=== PATIENT | male | born 1965 | race Hispanic/Latino ===

== ENCOUNTER 2017-09-29 04:37 | Inpatient (IN) | payer MEDICARE, MEDICAID ==
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
[2017-09-29 06:08] VITALS: O2SAT 100
[2017-09-29] MEDS ORDERED: Alum-Mag Hydrox-Simethicone Susp (30 mL) PO PRN (06:23)
[2017-09-29] MEDS ORDERED: Magnesium Hydroxide Susp 30 ml UD PO PRN (06:23)
[2017-09-29] MEDS ORDERED: DiphenhydrAMINE 50 mg/ml Inj IM PRN (06:42)
[2017-09-29 08:34] LABS: GLUCOSE,FASTING 92 mg/dL (65-110); HDL CHOLESTEROL 32 mg/dL (29-60)
[2017-09-29 08:45] LABS: LDL CHOLESTEROL 74 mg/dL (0-129)
[2017-09-29] MEDS ORDERED: Divalproex 500 mg DR(BID formulation) PO SCH (10:00)
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
--- NOTE | 2017-09-29 14:19 | PCM.BM ---
<Vanessa Serrano - Last Filed: 09/29/17 14:15> Treatment Plan Problems - Problems identified on initial assessmt ineffective ind coping Date Initiated: 09/29/17 Time Initiated: 14:00 Assessment reference: NA Status: Active Priority: 1 delusion Date Initiated: 09/29/17 (believes passersby are taking pictures of him from outside) Time Initiated: 14:00 Assessment reference: NA Status: Active Priority: 2 social isolation Date Initiated: 09/29/17 Time Initiated: 14:00 Assessment reference: NA Status: Active Priority: 3 Treatment assets and liabiliti Patient Assests: cooperative, ADL independent, cognitively intact Patient Liabilities: live alone, poor support system - Milieu Protocol Maintain good personal hygiene: daily Encourage regular showers, daily Remind patient to perform daily oral care, daily Assist patient to perform ADL's Maintain personal safety: every shift Educate patient to report safety concerns to staff, every shift Monitor environment for contraband/sharps Medication safety: Monitor for expected outcome, potential side effects: every shift, Assess barriers to learning: every shift, Assess readiness for medication education: every shift Milieu Narrative: Millieu/structure/supportive therapy meds as per [place] Report: lipitor 10mg po daily will be resumed depakote 500mg po am and 1000mg hs, will be resumed, depakote level was 50 prolixin 10mg po bid, will be increased to tid for psychosis, possible cross titration with invega Invega was called in to outpatient pharmacy will start 3mg po daily, with the plan to give Invega susstenna nizoral 2% bid topically omega 3 po bid will be resumed Medical consult will be considered, pt was medically cleared by ED physician at [facility] SW consultation for discharge plan and social issues Med management (specify the name, doses, plan to titrate or wean it off) Family involvement Follow up on labs Will monitor closely Pt was educated about risk/benefits and alternatives of medications, coping strategies (safety plan, suicide prevention), relapse prevention, importance of follow up with psychiatrist and therapist, stay away from drugs/alcohol/smoking Family Contact Family involvement: No known Family/SO - Outside Agency [facility] Care involvment: Following patient during stay, Information-sharing Agency contact name: [facility] Discharge/Continuing Care - Education Needs Education Needs: Patient Medication, Patient Diagnosis/Disease Process, Patient Coping Skills, Patient Community resources, Patient Activities of Daily Living, Patient Health Practices/Safety, Patient Personal Hygiene/Grooming, Patient Aftercare Safety Plan - Discharge Discharge Criteria: Tolerates medication w/o severe side effects, Free of Suicidal thoughts, Free of paranoid thoughts, Free of agitation, Normal sleep pattern, Ability to care for self Discharge to:: Halfway - Treatment Team Participation Patient/Family/SO Statement: Millieu/structure/supportive therapy meds as per [place] Report: lipitor 10mg po daily will be resumed depakote 500mg po am and 1000mg hs, will be resumed, depakote level was 50 prolixin 10mg po bid, will be increased to tid for psychosis, possible cross titration with invega Invega was called in to outpatient pharmacy will start 3mg po daily, with the plan to give Invega susstenna nizoral 2% bid topically omega 3 po bid will be resumed Medical consult will be considered, pt was medically cleared by ED physician at [facility] SW consultation for discharge plan and social issues Med management (specify the name, doses, plan to titrate or wean it off) Family involvement Follow up on labs Will monitor closely Pt was educated about risk/benefits and alternatives of medications, coping strategies (safety plan, suicide prevention), relapse prevention, importance of follow up with psychiatrist and therapist, stay away from drugs/alcohol/smoking <Fanny Vicente Y - Last Filed: 09/29/17 16:22> Family Contact Family contact: Patient agrees to contact
[2017-09-29] MEDS: Divalproex 500 mg DR(BID formulation) PO SCH ×2 (16:46→21:21)
[2017-09-29] MEDS: Omega-3-Acid Ethyl Esters 1 GM Cap PO SCH (16:47)
[2017-09-30 08:03] LABS: BASO # 0.08 K/mm3 (0.0-2.0); BASO % 1.1 % (0.0-3.0); EOS # 0.5 (0.0-0.7); EOS % 7.3 % (1.5-5.0); GRAN # 3.02 (1.4-6.5); GRAN % 41.6 % (50.0-68.0); HEMOGLOBIN 14.9 g/dL (14.0-18.0); LYMPH # 3.1 (1.2-3.4); LYMPH % 42.1 % (22.0-35.0); MEAN CELL VOLUME 89.3 fl (80.0-105.0); MEAN CORPUSCULAR HEMOGLOBIN 30.6 pg (25.0-35.0); MEAN CORPUSCULAR HGB CONC 34.3 g/dl (31.0-37.0); MEAN PLATELET VOLUME 10.9 fl (7.0-11.0); MONO # 0.6 (0.1-0.6); MONO % 7.9 % (1.0-6.0); RBC 4.87 10^6/uL (3.5-6.1); RED CELL DISTRIBUTION WIDTH 13.4 % (11.5-14.5); WHITE BLOOD COUNT 7.3 10^3/ul (4.5-11.0)
[2017-09-30 08:22] LABS: ALB/GLOB RATIO 1.3 (1.1-1.8); ALBUMIN 3.9 g/dL (3.0-4.8); ALT/SGPT 26 U/L (7-56); AST/SGOT 31 U/L (17-59); BLOOD UREA NITROGEN 15 mg/dL (7-21); CALCIUM 9.3 mg/dL (8.4-10.5); GFR AFRICAN-AMERICAN > 60; GFR NON-AFRICAN AMERICAN > 60
[2017-09-30] MEDS: Omega-3-Acid Ethyl Esters 1 GM Cap PO SCH ×2 (08:36→16:21)
[2017-09-30] MEDS: Divalproex 500 mg DR(BID formulation) PO SCH ×3 (08:36→21:00)
[2017-09-30] MEDS ORDERED: Home Med 1 UNIT PO SCH (14:00)
--- NOTE | 2017-09-30 16:01 | PCM.PYCHPN ---
Psychiatric Progress Note - Psychiatric Progress Note Patient seen today, length of contact: 30 minutes Patient Chief Complaint: "I was feeling people were after me.." Problems Identified/Issues Discussed: Suicide/ homicide prevention, past psychiatric h/o, current psychiatric symptoms , medical problems, risk/benefits and alternatives of medications, medications compliance, coping strategies, substance abuse h/o, relapse prevention, importance of follow up with psychiatrist and therapist, discharge plan. Medical Problems: patient is relatively healthy, but has dyslipidemia and hypertension Diagnostic Results: 09/30/17 07:45 09/30/17 07:45 Lab Results 09/30/17 07:45: Sodium 147, Potassium 4.5, Chloride 110 H, Carbon Dioxide 27, Anion Gap 15, BUN 15, Creatinine 0.8, Est GFR ( Amer) > 60, Est GFR (Non- Af Amer) > 60, Random Glucose 90, Calcium 9.3, Total Bilirubin 0.4, AST 31, ALT 26, Alkaline Phosphatase 49, Total Protein 6.8, Albumin 3.9, Globulin 2.9, Albumin/Globulin Ratio 1.3 09/30/17 07:45: WBC 7.3, RBC 4.87, Hgb 14.9, Hct 43.5, MCV 89.3, MCH 30.6, MCHC 34.3, RDW 13.4, Plt Count 203, MPV 10.9, Gran % 41.6 L, Lymph % (Auto) 42.1 H, [place] % (Auto) 7.9 H, Eos % (Auto) 7.3 H, Baso % (Auto) 1.1, Gran # 3.02, Lymph # (Auto) 3.1, [place] # (Auto) 0.6, Eos # (Auto) 0.5, Baso # (Auto) 0.08 09/29/17 08:00: Valproic Acid 52 09/29/17 08:00: RPR Nonreactive 09/29/17 08:00: TSH 3rd Generation 1.24 09/29/17 08:00: Fasting Glucose 92, Triglycerides 110, Cholesterol 127 L, LDL Cholesterol Direct 74, HDL Cholesterol 32 Vital Signs Temp Pulse Resp BP Pulse Ox 09/30/17 07:15 97.9 F 70 18 81/53 L 09/29/17 16:00 63 111/62 09/29/17 06:10 97.5 F L 67 20 116/75 09/29/17 05:52 82 18 118/76 100 09/29/17 04:46 97.8 F 64 18 120/71 97 DSM 5 Symptoms Update: shortly pt is 52yo with reported h/o schizoaffective disorder, bipolar type, multiple psychiatric admissions in the past, at least two suicidal attempts in his , pt lives in long term, recent psychiatric admission to [facility] on 09/15/17 where meds were adjusted, pt was brought in by staff from the long term to [facility] for evaluation of aggressive/disorganized/paranoid behavior, pt was decompensating for the past week. pt was not able to be maintained as outpatient because pt was verbally aggressive, threatening staff and residents, pt needs further evaluation and stabilization and meds adjustment. Transfer from [facility] was uneventful. pt was seen next at the nursing station, personal hygiene improved, patient seems to be relaxed, well rested. Patient still presented to be a guarded, paranoid, disorganized thought process , patient is intrusive as per staff. This financial underwriter called in for an invega to [facility] pharmacy, medication was delivered today at 3 mg by mouth will be started today, risk, benefits, alternatives discussed with the patient. patient tolerates medications well, no side effects observed or reported, as per staff there is no behavioral disturbances, no agitation, no aggression. Impression: Schizoaffective disorder, bipolar type Medication Change: Yes (invega was started) Medical Record Reviewed: Yes Consults ordered or reviewed: patient was cleared by medical team and the emergency room Mental Status Examination - Cognitive Function Orientation: Person Memory: Impaired Attention: Poor Concentration: Poor Association: Loose Fund of Knowledge: Poor - Mood Mood: Depressed - Affect Affect: Constricted (and irritable), Flat - Formal Thought Process Formal Thought Process: Hallucinations, Delusions, Paranoia, Loosening of associations, Circumstantial - Suicidal Ideation Suicidal Ideation: No - Homicidal Ideation Homicidal Ideation: No Goal/Treatment Plan - Goal/Treatment Plan Need for Continued Stay: Remain at risks for inpatient hospitalization, Severe depression anxiety, Discharge may exacerbated symptoms, Failed transitioning, Severe functional impairment Progress Toward Problem(s) and Goals/Treatment Plan: Millieu/structure/supportive therapy meds as per [place] Report: lipitor 10mg po daily will be resumed depakote 500mg po am and 1000mg hs, will be resumed, depakote level was 50 prolixin 10mg po bid, will be increased to tid for psychosis, possible cross titration with invega Invega 3mg po daily, with the plan to give Invega susstenna nizoral 2% bid topically omega 3 po bid will be resumed Medical consult will be considered, pt was medically cleared by ED physician at [facility] consultation for discharge plan and social issues Med management (specify the name, doses, plan to titrate or wean it off) Family involvement Follow up on labs Will monitor closely Pt was educated about risk/benefits and alternatives of medications, coping strategies (safety plan, suicide prevention), relapse prevention, importance of follow up with psychiatrist and therapist, stay away from drugs/alcohol/smoking Estimated Date of D/C: 10/06/17
[2017-10-01] MEDS: Divalproex 500 mg DR(BID formulation) PO SCH ×3 (08:22→21:05)
[2017-10-01] MEDS: Omega-3-Acid Ethyl Esters 1 GM Cap PO SCH ×2 (08:25→15:10)
--- NOTE | 2017-10-01 14:34 | PCM.PYCHPN ---
Psychiatric Progress Note - Psychiatric Progress Note Patient seen today, length of contact: 30 minutes Patient Chief Complaint: "I am little better" Problems Identified/Issues Discussed: Suicide/ homicide prevention, past psychiatric h/o, current psychiatric symptoms , medical problems, risk/benefits and alternatives of medications, medications compliance, coping strategies, substance abuse h/o, relapse prevention, importance of follow up with psychiatrist and therapist, discharge plan. Medical Problems: patient is relatively healthy, but has dyslipidemia and hypertension Diagnostic Results: 09/30/17 07:45 09/30/17 07:45 Lab Results 09/30/17 07:45: Sodium 147, Potassium 4.5, Chloride 110 H, Carbon Dioxide 27, Anion Gap 15, BUN 15, Creatinine 0.8, Est GFR ( Amer) > 60, Est GFR (Non- Af Amer) > 60, Random Glucose 90, Calcium 9.3, Total Bilirubin 0.4, AST 31, ALT 26, Alkaline Phosphatase 49, Total Protein 6.8, Albumin 3.9, Globulin 2.9, Albumin/Globulin Ratio 1.3 09/30/17 07:45: WBC 7.3, RBC 4.87, Hgb 14.9, Hct 43.5, MCV 89.3, MCH 30.6, MCHC 34.3, RDW 13.4, Plt Count 203, MPV 10.9, Gran % 41.6 L, Lymph % (Auto) 42.1 H, [place] % (Auto) 7.9 H, Eos % (Auto) 7.3 H, Baso % (Auto) 1.1, Gran # 3.02, Lymph # (Auto) 3.1, [place] # (Auto) 0.6, Eos # (Auto) 0.5, Baso # (Auto) 0.08 09/29/17 08:00: Valproic Acid 52 09/29/17 08:00: RPR Nonreactive 09/29/17 08:00: TSH 3rd Generation 1.24 09/29/17 08:00: Fasting Glucose 92, Triglycerides 110, Cholesterol 127 L, LDL Cholesterol Direct 74, HDL Cholesterol 32 Vital Signs Temp Pulse Resp BP Pulse Ox 09/30/17 07:15 97.9 F 70 18 81/53 L 09/29/17 16:00 63 111/62 09/29/17 06:10 97.5 F L 67 20 116/75 09/29/17 05:52 82 18 118/76 100 09/29/17 04:46 97.8 F 64 18 120/71 97 Temp Pulse Resp BP Pulse Ox 97.6 F 69 18 104/69 100 10/01/17 07:00 10/01/17 07:00 10/01/17 07:00 10/01/17 07:00 09/29/17 05:52 DSM 5 Symptoms Update: shortly pt is 52yo with reported h/o schizoaffective disorder, bipolar type, multiple psychiatric admissions in the past, at least two suicidal attempts in his , pt lives in half-way, recent psychiatric admission to [facility] on 09/15/17 where meds were adjusted, pt was brought in by staff from the half-way to [facility] for evaluation of aggressive/disorganized/paranoid behavior, pt was decompensating for the past week. pt was not able to be maintained as outpatient because pt was verbally aggressive, threatening staff and residents, pt needs further evaluation and stabilization and meds adjustment. Transfer from [facility] was uneventful. pt was seen next at the nursing station, personal hygiene improved, patient seems to be relaxed, well rested, pt reported that he likes invega "a lot", pt was asking intelligent questions about his tx plan. at the same time patient still presented to be a guarded, disorganized thought process but with some improvement, pt was keep looking to back, seems paranoid. pt is currently is on ivega 3 mg bid ([facility] pharmacy delivered this medication), with the plan to taper off prolixin. patient tolerates medications well, no side effects observed or reported, as per staff there is no behavioral disturbances, no agitation, no aggression. Impression: Schizoaffective disorder, bipolar type Medication Change: Yes (prolixin decreased, invega increased) Medical Record Reviewed: Yes Mental Status Examination - Cognitive Function Orientation: Person Memory: Impaired Attention: Poor Concentration: Poor Association: Loose Fund of Knowledge: Poor - Mood Mood: Depressed - Affect Affect: Constricted (and irritable), Flat - Formal Thought Process Formal Thought Process: Hallucinations, Delusions, Paranoia, Loosening of associations, Circumstantial - Suicidal Ideation Suicidal Ideation: No - Homicidal Ideation Homicidal Ideation: No Goal/Treatment Plan - Goal/Treatment Plan Need for Continued Stay: Remain at risks for inpatient hospitalization, Severe depression anxiety, Discharge may exacerbated symptoms, Failed transitioning, Severe functional impairment Progress Toward Problem(s) and Goals/Treatment Plan: [facility]ieu/structure/supportive therapy meds as per [place] Report: lipitor 10mg po daily will be resumed depakote 500mg po am and 1000mg hs, will be resumed, depakote level was 50 prolixin 10mg po bid (was decreased /) with the plan to tapered off Invega 3mg po bid, with the plan to give Invega susstenna nizoral 2% bid topically omega 3 po bid will be resumed Medical consult will be considered, pt was medically cleared by ED physician at [facility] SW consultation for discharge plan and social issues Med management (specify the name, doses, plan to titrate or wean it off) Family involvement Follow up on labs Will monitor closely Pt was educated about risk/benefits and alternatives of medications, coping strategies (safety plan, suicide prevention), relapse prevention, importance of follow up with psychiatrist and therapist, stay away from drugs/alcohol/smoking Estimated Date of D/C: 10/06/17
[2017-10-01] MEDS: Home Med 1 UNIT PO SCH (21:05)
[2017-10-01] MEDS ORDERED: Home Med 1 UNIT PO SCH (22:00)
[2017-10-02 06:45] VITALS: RESP 20
[2017-10-02] MEDS: Divalproex 500 mg DR(BID formulation) PO SCH ×3 (08:30→21:10)
[2017-10-02] MEDS: Omega-3-Acid Ethyl Esters 1 GM Cap PO SCH ×2 (08:30→16:03)
--- NOTE | 2017-10-02 09:38 | PCM.PYCHPN ---
Psychiatric Progress Note - Psychiatric Progress Note Patient seen today, length of contact: 25 minutes Patient Chief Complaint: "okay" Problems Identified/Issues Discussed: I have reviewed assessment. Patient is a 52yo WM with reported h/o schizoaffective disorder, bipolar type, multiple psychiatric admissions in the past, at least two suicidal attempts in his 20s, pt lives in [facility], recent psychiatric admission to [facility] on 09/15/17 where meds were adjusted, who was BIB [facility] staff to [facility] for evaluation of aggressive/ disorganized/paranoid behavior. Apparently patient was decompensating for a week , verbally aggressive and threatening staff and residents. I reviewed recent notes and met with patient at bedside. He is alert and oriented x3. Patient denies any new issues or discomfort except for muscle stiffness. Indicates that he feels okay, affect is constricted. Patient reports that he has been sleeping really well. Denies hallucinations, paranoia and delusions were not elicited. Staff notes indicate that patient has been visible and can tolerate group settings. Compliant with medications and has been sleeping well with ambien. Patient has been calmer and less labile (was noted to be irritable and granger earlier during admission). There were no major behavioral issues overnight. Diagnostic Results: Schizoaffective disorder, bipolar type Medication Change: Yes (prolixin decreased, invega increased) Medical Record Reviewed: Yes Mental Status Examination - Cognitive Function Orientation: Person, Place Memory: Impaired Attention: WNL Concentration: Poor Association: Loose Fund of Knowledge: Poor - Mood Mood: Depressed ("okay") - Affect Affect: Constricted (and irritable), Flat - Formal Thought Process Formal Thought Process: Hallucinations (denied), Delusions, Paranoia, Loosening of associations, Circumstantial - Suicidal Ideation Suicidal Ideation: No - Homicidal Ideation Homicidal Ideation: No Goal/Treatment Plan - Goal/Treatment Plan Need for Continued Stay: Remain at risks for inpatient hospitalization, Severe depression anxiety, Discharge may exacerbated symptoms, Failed transitioning, Severe functional impairment Progress Toward Problem(s) and Goals/Treatment Plan: * c/w current tx and plan * Vitals reviewed and noted below: Selected Entries 10/02/17 06:44 Temperature 97.8 F Pulse Rate 82 Respiratory 20 Rate Blood Pressure 121/82 * No new weekend labs thus far. Estimated Date of D/C: 10/06/17
[2017-10-02] MEDS: Home Med 1 UNIT PO SCH ×2 (10:03→21:14)
[2017-10-03] MEDS: Divalproex 500 mg DR(BID formulation) PO SCH ×3 (08:41→20:58)
[2017-10-03] MEDS: Omega-3-Acid Ethyl Esters 1 GM Cap PO SCH ×2 (08:42→15:54)
--- NOTE | 2017-10-03 08:43 | PCM.PYCHPN ---
Psychiatric Progress Note - Psychiatric Progress Note Patient seen today, length of contact: 25 minutes Patient Chief Complaint: "okay" Problems Identified/Issues Discussed: I have reviewed assessment. Patient is a 52yo WM with reported h/o schizoaffective disorder, bipolar type, multiple psychiatric admissions in the past, at least two suicidal attempts in his 20s, [facility], recent psychiatric admission to [facility] on 09/15/17 where meds were adjusted, who [facility] BIB [facility] staff to [facility] for evaluation of aggressive/ disorganized/paranoid behavior. Apparently patient was decompensating for a week , verbally aggressive and threatening staff and residents. I reviewed recent notes and met with patient at bedside. He is alert and oriented x3. Patient denies any new issues or discomfort except for muscle stiffness. Indicates that he feels okay, affect is constricted. Patient reports that he has been sleeping well. Denies hallucinations, paranoia and delusions were not elicited this morning. Staff notes indicate that patient has been visible and attending groups with good participation. Compliant with medications and has been sleeping well with ambien. Patient has been calmer and a little less labile this weekend (he was noted to be irritable and granger earlier during admission). There were no major behavioral issues over the weekend though patient has been noted to still be paranoid and delusional by some staff members. Diagnostic Results: Schizoaffective disorder, bipolar type Medication Change: Yes (prolixin decreased, invega increased) Medical Record Reviewed: Yes Mental Status Examination - Cognitive Function Orientation: Person, Place Memory: Impaired Attention: WNL Concentration: Poor Association: Loose Fund of Knowledge: Poor - Mood Mood: Depressed ("okay") - Affect Affect: Constricted (and irritable), Flat - Formal Thought Process Formal Thought Process: Hallucinations (denied), Delusions, Paranoia, Loosening of associations, Circumstantial - Suicidal Ideation Suicidal Ideation: No - Homicidal Ideation Homicidal Ideation: No Goal/Treatment Plan - Goal/Treatment Plan Need for Continued Stay: Remain at risks for inpatient hospitalization, Severe depression anxiety, Discharge may exacerbated symptoms, Failed transitioning, Severe functional impairment Progress Toward Problem(s) and Goals/Treatment Plan: * c/w current tx and plan * Vitals reviewed and noted below: Selected Entries 10/03/17 07:32 Temperature 97.6 F Pulse Rate 63 Respiratory 20 Rate Blood Pressure 99/60 L * No new weekend labs Estimated Date of D/C: 10/06/17
[2017-10-03] MEDS: Home Med 1 UNIT PO SCH ×2 (09:11→21:00)
[2017-10-04] MEDS: Omega-3-Acid Ethyl Esters 1 GM Cap PO SCH ×2 (08:52→16:26)
[2017-10-04] MEDS: Divalproex 500 mg DR(BID formulation) PO SCH ×3 (08:53→21:06)
[2017-10-04] MEDS: Home Med 1 UNIT PO SCH (10:42)
--- NOTE | 2017-10-04 15:59 | PCM.PYCHPN ---
Psychiatric Progress Note - Psychiatric Progress Note Patient seen today, length of contact: 25 minutes Patient Chief Complaint: "I am little better" Problems Identified/Issues Discussed: Suicide/ homicide prevention, past psychiatric h/o, current psychiatric symptoms , medical problems, risk/benefits and alternatives of medications, medications compliance, coping strategies, substance abuse h/o, relapse prevention, importance of follow up with psychiatrist and therapist, discharge plan. Medical Problems: patient is relatively healthy, but has dyslipidemia and hypertension Diagnostic Results: 09/30/17 07:45 09/30/17 07:45 Lab Results 09/30/17 07:45: Sodium 147, Potassium 4.5, Chloride 110 H, Carbon Dioxide 27, Anion Gap 15, BUN 15, Creatinine 0.8, Est GFR ( Amer) > 60, Est GFR (Non- Af Amer) > 60, Random Glucose 90, Calcium 9.3, Total Bilirubin 0.4, AST 31, ALT 26, Alkaline Phosphatase 49, Total Protein 6.8, Albumin 3.9, Globulin 2.9, Albumin/Globulin Ratio 1.3 09/30/17 07:45: WBC 7.3, RBC 4.87, Hgb 14.9, Hct 43.5, MCV 89.3, MCH 30.6, MCHC 34.3, RDW 13.4, Plt Count 203, MPV 10.9, Gran % 41.6 L, Lymph % (Auto) 42.1 H, [place] % (Auto) 7.9 H, Eos % (Auto) 7.3 H, Baso % (Auto) 1.1, Gran # 3.02, Lymph # (Auto) 3.1, [place] # (Auto) 0.6, Eos # (Auto) 0.5, Baso # (Auto) 0.08 09/29/17 08:00: Valproic Acid 52 09/29/17 08:00: RPR Nonreactive 09/29/17 08:00: TSH 3rd Generation 1.24 09/29/17 08:00: Fasting Glucose 92, Triglycerides 110, Cholesterol 127 L, LDL Cholesterol Direct 74, HDL Cholesterol 32 Vital Signs Temp Pulse Resp BP Pulse Ox 09/30/17 07:15 97.9 F 70 18 81/53 L 09/29/17 16:00 63 111/62 09/29/17 06:10 97.5 F L 67 20 116/75 09/29/17 05:52 82 18 118/76 100 09/29/17 04:46 97.8 F 64 18 120/71 97 Temp Pulse Resp BP Pulse Ox 97.6 F 69 18 104/69 100 10/01/17 07:00 10/01/17 07:00 10/01/17 07:00 10/01/17 07:00 09/29/17 05:52 DSM 5 Symptoms Update: shortly pt is 52yo with reported h/o schizoaffective disorder, bipolar type, multiple psychiatric admissions in the past, at least two suicidal attempts in his , pt lives in [facility], recent psychiatric admission to [facility] on 09/15/17 where meds were adjusted, pt was brought in by staff from the [facility] to [facility] for evaluation of aggressive/disorganized/paranoid behavior, pt was decompensating for the past week. pt was not able to be maintained as outpatient because pt was verbally aggressive, threatening staff and residents, pt needs further evaluation and stabilization and meds adjustment. Transfer from [facility] was uneventful. pt was seen at the treatment team meeting, personal hygiene improved, patient seems to be relaxed, well rested, pt reported that he likes invega "a lot", pt was asking intelligent questions about his tx plan. at the same time patient made a statement to staff that he feels people stop talking when he comes to the room, still guarded, but with some improvements. pt is currently is on ivega 6 mg bid ([facility] pharmacy delivered this medication), pt is on taper dose of prolixin. patient tolerates medications well, as per pt c/o mm stiffness, cogentin was ordered. Impression: Schizoaffective disorder, bipolar type Medication Change: Yes (prolixin decreased, invega increased) Medical Record Reviewed: Yes Mental Status Examination - Cognitive Function Orientation: Person, Place Memory: Impaired Attention: WNL Concentration: Poor Association: Loose Fund of Knowledge: Poor - Mood Mood: Depressed ("okay") - Affect Affect: Constricted (and irritable), Flat - Formal Thought Process Formal Thought Process: Hallucinations (denied), Delusions, Paranoia, Loosening of associations, Circumstantial - Suicidal Ideation Suicidal Ideation: No - Homicidal Ideation Homicidal Ideation: No Goal/Treatment Plan - Goal/Treatment Plan Need for Continued Stay: Remain at risks for inpatient hospitalization, Severe depression anxiety, Discharge may exacerbated symptoms, Failed transitioning, Severe functional impairment Progress Toward Problem(s) and Goals/Treatment Plan: Millieu/structure/supportive therapy meds as per [place] Report: lipitor 10mg po daily will be resumed depakote 500mg po am and 1000mg hs, will be resumed, depakote level was 50 prolixin 5mg po hs with the plan to tapered off Invega 6mg po bid, with the plan to give Invega susstenna nizoral 2% bid topically omega 3 po bid will be resumed Medical consult will be considered, pt was medically cleared by ED physician at [facility] SW consultation for discharge plan and social issues Med management (specify the name, doses, plan to titrate or wean it off) Family involvement Follow up on labs Will monitor closely Pt was educated about risk/benefits and alternatives of medications, coping strategies (safety plan, suicide prevention), relapse prevention, importance of follow up with psychiatrist and therapist, stay away from drugs/alcohol/smoking Estimated Date of D/C: 10/06/17
[2017-10-04] MEDS ORDERED: Home Med 1 UNIT PO SCH (22:00)
[2017-10-05] MEDS: Divalproex 500 mg DR(BID formulation) PO SCH ×3 (09:03→20:59)
[2017-10-05] MEDS: Omega-3-Acid Ethyl Esters 1 GM Cap PO SCH ×2 (09:03→16:05)
[2017-10-05] MEDS: PALIPERIDONE 6 MG PO SCH ×2 (11:21→21:00)
--- NOTE | 2017-10-05 16:42 | PCM.PYCHPN ---
Psychiatric Progress Note - Psychiatric Progress Note Patient seen today, length of contact: 25 minutes Patient Chief Complaint: "I am little better" Problems Identified/Issues Discussed: Suicide/ homicide prevention, past psychiatric h/o, current psychiatric symptoms , medical problems, risk/benefits and alternatives of medications, medications compliance, coping strategies, substance abuse h/o, relapse prevention, importance of follow up with psychiatrist and therapist, discharge plan. Medical Problems: patient is relatively healthy, but has dyslipidemia and hypertension Diagnostic Results: 09/30/17 07:45 09/30/17 07:45 Lab Results 09/30/17 07:45: Sodium 147, Potassium 4.5, Chloride 110 H, Carbon Dioxide 27, Anion Gap 15, BUN 15, Creatinine 0.8, Est GFR ( Amer) > 60, Est GFR (Non- Af Amer) > 60, Random Glucose 90, Calcium 9.3, Total Bilirubin 0.4, AST 31, ALT 26, Alkaline Phosphatase 49, Total Protein 6.8, Albumin 3.9, Globulin 2.9, Albumin/Globulin Ratio 1.3 09/30/17 07:45: WBC 7.3, RBC 4.87, Hgb 14.9, Hct 43.5, MCV 89.3, MCH 30.6, MCHC 34.3, RDW 13.4, Plt Count 203, MPV 10.9, Gran % 41.6 L, Lymph % (Auto) 42.1 H, [place] % (Auto) 7.9 H, Eos % (Auto) 7.3 H, Baso % (Auto) 1.1, Gran # 3.02, Lymph # (Auto) 3.1, [place] # (Auto) 0.6, Eos # (Auto) 0.5, Baso # (Auto) 0.08 09/29/17 08:00: Valproic Acid 52 09/29/17 08:00: RPR Nonreactive 09/29/17 08:00: TSH 3rd Generation 1.24 09/29/17 08:00: Fasting Glucose 92, Triglycerides 110, Cholesterol 127 L, LDL Cholesterol Direct 74, HDL Cholesterol 32 Vital Signs Temp Pulse Resp BP Pulse Ox 09/30/17 07:15 97.9 F 70 18 81/53 L 09/29/17 16:00 63 111/62 09/29/17 06:10 97.5 F L 67 20 116/75 09/29/17 05:52 82 18 118/76 100 09/29/17 04:46 97.8 F 64 18 120/71 97 Temp Pulse Resp BP Pulse Ox 97.6 F 69 18 104/69 100 10/01/17 07:00 10/01/17 07:00 10/01/17 07:00 10/01/17 07:00 09/29/17 05:52 DSM 5 Symptoms Update: shortly pt is 52yo with reported h/o schizoaffective disorder, bipolar type, multiple psychiatric admissions in the past, at least two suicidal attempts in his , pt lives in [facility], recent psychiatric admission to [facility] on 09/15/17 where meds were adjusted, pt was brought [facility] by staff from the [facility] to [facility] for evaluation of aggressive/disorganized/paranoid behavior, pt was decompensating for the past week. pt was not able to be maintained as outpatient because pt was verbally aggressive, threatening staff and residents, pt needs further evaluation and stabilization and meds adjustment. Transfer from [facility] was uneventful. pt was seen in his room, pt said he was feeling that his roommate was starring at him "all night long, may be he was just up all night long, I don't know, or may be I was feeling paranoid", pt said he tolerates invega well, denied any side effects. pt said he is not depressed, denied any thoughts of harming self or others. pt was asking intelligent questions about his tx plan. pt was offered Invega sustenna IM , but pt said "my body is not tolerating injections well" pt is currently is on ivega 6 mg bid ([facility] pharmacy delivered this medication), d /c prolixin today. patient tolerates medications well, as per pt c/o mm stiffness, cogentin was ordered. Impression: Schizoaffective disorder, bipolar type Medication Change: Yes (prolixin decreased, invega increased) Medical Record Reviewed: Yes Consults ordered or reviewed: patient was cleared by medical team and the emergency room Mental Status Examination - Cognitive Function Orientation: Person, Place Memory: Impaired Attention: WNL Concentration: Poor (some improvement) Association: Loose (some improvement) Fund of Knowledge: Poor - Mood Mood: Depressed ("okay") - Affect Affect: Constricted (and irritable), Flat - Formal Thought Process Formal Thought Process: Hallucinations (denied), Delusions (some iprovement), Paranoia (improvement), Loosening of associations (with some improvement) - Suicidal Ideation Suicidal Ideation: No - Homicidal Ideation Homicidal Ideation: No Goal/Treatment Plan - Goal/Treatment Plan Need for Continued Stay: Remain at risks for inpatient hospitalization, Severe depression anxiety, Discharge may exacerbated symptoms, Failed transitioning, Severe functional impairment Progress Toward Problem(s) and Goals/Treatment Plan: Millieu/structure/supportive therapy meds as per [facility] Report: lipitor 10mg po daily will be resumed depakote 500mg po am and 1000mg hs, will be resumed, depakote level was 50 prolixin d/c today Invega 6mg po bid, with the plan to give Invega susstenna nizoral 2% bid topically omega 3 po bid will be resumed Medical consult will be considered, pt was medically cleared by ED physician at [facility] consultation for discharge plan and social issues Med management (specify the name, doses, plan to titrate or wean it off) Family involvement Follow up on labs Will monitor closely Pt was educated about risk/benefits and alternatives of medications, coping strategies (safety plan, suicide prevention), relapse prevention, importance of follow up with psychiatrist and therapist, stay away from drugs/alcohol/smoking Estimated Date of D/C: 10/07/17
[2017-10-05] MEDS ORDERED: Home Med 1 UNIT PO SCH (22:00)
[2017-10-06] MEDS: Divalproex 500 mg DR(BID formulation) PO SCH (08:47)
[2017-10-06] MEDS: Omega-3-Acid Ethyl Esters 1 GM Cap PO SCH ×2 (08:47→16:06)
[2017-10-06] MEDS: PALIPERIDONE 6 MG PO SCH ×2 (09:17→21:11)
--- NOTE | 2017-10-06 12:36 | PCM.PYCHPN ---
Psychiatric Progress Note - Psychiatric Progress Note Patient seen today, length of contact: 30min Patient Chief Complaint: "I am little confused" Problems Identified/Issues Discussed: Suicide/ homicide prevention, past psychiatric h/o, current psychiatric symptoms , medical problems, risk/benefits and alternatives of medications, medications compliance, coping strategies, substance abuse h/o, relapse prevention, importance of follow up with psychiatrist and therapist, discharge plan. Medical Problems: patient is relatively healthy, but has dyslipidemia and hypertension Diagnostic Results: 09/30/17 07:45 09/30/17 07:45 Lab Results 09/30/17 07:45: Sodium 147, Potassium 4.5, Chloride 110 H, Carbon Dioxide 27, Anion Gap 15, BUN 15, Creatinine 0.8, Est GFR ( Amer) > 60, Est GFR (Non- Af Amer) > 60, Random Glucose 90, Calcium 9.3, Total Bilirubin 0.4, AST 31, ALT 26, Alkaline Phosphatase 49, Total Protein 6.8, Albumin 3.9, Globulin 2.9, Albumin/Globulin Ratio 1.3 09/30/17 07:45: WBC 7.3, RBC 4.87, Hgb 14.9, Hct 43.5, MCV 89.3, MCH 30.6, MCHC 34.3, RDW 13.4, Plt Count 203, MPV 10.9, Gran % 41.6 L, Lymph % (Auto) 42.1 H, [place] % (Auto) 7.9 H, Eos % (Auto) 7.3 H, Baso % (Auto) 1.1, Gran # 3.02, Lymph # (Auto) 3.1, [place] # (Auto) 0.6, Eos # (Auto) 0.5, Baso # (Auto) 0.08 09/29/17 08:00: Valproic Acid 52 09/29/17 08:00: RPR Nonreactive 09/29/17 08:00: TSH 3rd Generation 1.24 09/29/17 08:00: Fasting Glucose 92, Triglycerides 110, Cholesterol 127 L, LDL Cholesterol Direct 74, HDL Cholesterol 32 Vital Signs Temp Pulse Resp BP Pulse Ox 09/30/17 07:15 97.9 F 70 18 81/53 L 09/29/17 16:00 63 111/62 09/29/17 06:10 97.5 F L 67 20 116/75 09/29/17 05:52 82 18 118/76 100 09/29/17 04:46 97.8 F 64 18 120/71 97 Temp Pulse Resp BP Pulse Ox 97.6 F 69 18 104/69 100 10/01/17 07:00 10/01/17 07:00 10/01/17 07:00 10/01/17 07:00 09/29/17 05:52 Temp Pulse Resp BP Pulse Ox 97.9 F 72 20 127/78 100 10/06/17 07:00 10/06/17 07:00 10/06/17 07:00 10/06/17 07:00 09/29/17 05:52 DSM 5 Symptoms Update: shortly pt is 52yo with reported h/o schizoaffective disorder, bipolar type, multiple psychiatric admissions in the past, at least two suicidal attempts in his , pt lives in [facility], recent psychiatric admission to [facility] on 09/15/17 where meds were adjusted, pt was brought in by staff from the [facility] to [facility] for evaluation of aggressive/disorganized/paranoid behavior, pt was decompensating for the past week. pt was not able to be maintained as outpatient because pt was verbally aggressive, threatening staff and residents, pt needs further evaluation and stabilization and meds adjustment. Transfer from [facility] was uneventful. pt was seen at the treatment team meeting, pt presented to be more confused, had difficulties to express himself, speech is more disorganized, pt trying his best to present well. as per staff pt had paranoia, was feeling that another pt was chasing him, which was not true, pt responded well on education and reality education, pt was receptive. pt agreed to be resumed on prolixin 5mg po bid, stat dose was given. as per pt "I was on two medications before, I am fine with that...". pt asked about depakote to be given twice a day. pt olerates invega well, denied any side effects. pt said he is not depressed, denied any thoughts of harming self or others. pt was asking intelligent questions about his tx plan. pt was offered Invega sustenna IM , but pt said "my body is not tolerating injections well" patient tolerates medications well, as per pt c/o mm stiffness, cogentin was ordered. Impression: Schizoaffective disorder, bipolar type Medication Change: Yes (prolixin resumed, invega increased) Medical Record Reviewed: Yes Mental Status Examination - Cognitive Function Orientation: Person, Place Memory: Impaired Attention: WNL Concentration: Poor (some improvement) Association: Loose (some improvement) Fund of Knowledge: Poor - Mood Mood: Depressed ("okay") - Affect Affect: Constricted (and irritable), Flat - Formal Thought Process Formal Thought Process: Hallucinations (denied), Delusions, Paranoia (pt felt that other pt was chasing him, pt also had feeling that his roommate was staring at him), Loosening of associations (with some improvement) - Suicidal Ideation Suicidal Ideation: No - Homicidal Ideation Homicidal Ideation: No Goal/Treatment Plan - Goal/Treatment Plan Need for Continued Stay: Remain at risks for inpatient hospitalization, Severe depression anxiety, Discharge may exacerbated symptoms, Failed transitioning, Severe functional impairment Progress Toward Problem(s) and Goals/Treatment Plan: Millieu/structure/supportive therapy lipitor 10mg po daily will be resumed depakote 500mg po am and 1000mg hs, will be resumed, depakote level was 50 prolixin 5mg po amhs resumed for psychosis pt should be on two antipsychotics as of now Invega 6mg po bid, with the plan to give Invega susstenna nizoral 2% bid topically omega 3 po bid will be resumed Medical consult will be considered, pt was medically cleared by ED physician at [facility] consultation for discharge plan and social issues Med management (specify the name, doses, plan to titrate or wean it off) Family involvement Follow up on labs Will monitor closely Pt was educated about risk/benefits and alternatives of medications, coping strategies (safety plan, suicide prevention), relapse prevention, importance of follow up with psychiatrist and therapist, stay away from drugs/alcohol/smoking Estimated Date of D/C: 10/08/17
--- NOTE | 2017-10-06 14:14 | PCM.BM ---
Treatment Plan Problems - Problems identified on initial assessmt ineffective ind coping Date Initiated: 09/29/17 (10/06/17 POSITIVE COPING SKILLS HAS IMPROVED) Time Initiated: 14:00 Assessment reference: NA Status: Active Priority: 1 delusion Date Initiated: 09/29/17 (believes passersby are taking pictures of him from outside) Time Initiated: 14:00 (10/06/17 PARANOID DELUSION IS LESS) Assessment reference: NA Status: Active Priority: 2 social isolation Date Initiated: 09/29/17 Time Initiated: 14:00 Date resolved: 10/06/17 (ATTENDING MORE GROUPS) Assessment reference: NA Status: Active Priority: 3 Treatment assets and liabiliti Patient Assests: cooperative, ADL independent, cognitively intact Patient Liabilities: live alone, poor support system - Milieu Protocol Maintain good personal hygiene: daily Encourage regular showers, daily Remind patient to perform daily oral care, daily Assist patient to perform ADL's Maintain personal safety: every shift Educate patient to report safety concerns to staff, every shift Monitor environment for contraband/sharps Medication safety: Monitor for expected outcome, potential side effects: every shift, Assess barriers to learning: every shift, Assess readiness for medication education: every shift Milieu Narrative: Millieu/structure/supportive therapy lipitor 10mg po daily will be resumed depakote 500mg po am and 1000mg hs, will be resumed, depakote level was 50 prolixin 5mg po amhs resumed for psychosis pt should be on two antipsychotics as of now Invega 6mg po bid, with the plan to give Invega susstenna nizoral 2% bid topically omega 3 po bid will be resumed Medical consult will be considered, pt was medically cleared by ED physician at [facility] consultation for discharge plan and social issues Med management (specify the name, doses, plan to titrate or wean it off) Family involvement Follow up on labs Will monitor closely Pt was educated about risk/benefits and alternatives of medications, coping strategies (safety plan, suicide prevention), relapse prevention, importance of follow up with psychiatrist and therapist, stay away from drugs/alcohol/smoking Family Contact Family contact: Patient agrees to contact - Outside Agency [facility] Care involvment: Following patient during stay, Information-sharing Agency contact name: [facility] Discharge/Continuing Care - Education Needs Education Needs: Patient Medication, Patient Diagnosis/Disease Process, Patient Coping Skills, Patient Community resources, Patient Activities of Daily Living, Patient Health Practices/Safety, Patient Personal Hygiene/Grooming, Patient Aftercare Safety Plan - Discharge Discharge Criteria: Tolerates medication w/o severe side effects, Free of Suicidal thoughts, Free of paranoid thoughts, Free of agitation, Normal sleep pattern, Ability to care for self Discharge to:: [facility] - Treatment Team Participation Patient/Family/SO Statement: Millieu/structure/supportive therapy lipitor 10mg po daily will be resumed depakote 500mg po am and 1000mg hs, will be resumed, depakote level was 50 prolixin 5mg po amhs resumed for psychosis pt should be on two antipsychotics as of now Invega 6mg po bid, with the plan to give Invega susstenna nizoral 2% bid topically omega 3 po bid will be resumed Medical consult will be considered, pt was medically cleared by ED physician at [facility] consultation for discharge plan and social issues Med management (specify the name, doses, plan to titrate or wean it off) Family involvement Follow up on labs Will monitor closely Pt was educated about risk/benefits and alternatives of medications, coping strategies (safety plan, suicide prevention), relapse prevention, importance of follow up with psychiatrist and therapist, stay away from drugs/alcohol/smoking Treatment Plan Review - Problem ineffective ind coping Time Initiated: 14:00 delusion Time Initiated: 14:00 social isolation Time Initiated: 14:00
[2017-10-06] MEDS ORDERED: Divalproex 500 mg ER (ONCE DAILY formulation) PO SCH (22:00)
[2017-10-07 07:03] VITALS: BP 102/70; PULSE 82; TEMP 97.2
[2017-10-07] MEDS ORDERED: Divalproex 500 mg ER (ONCE DAILY formulation) PO SCH (08:00)
[2017-10-07 08:02] LABS: BASO # 0.06 K/mm3 (0.0-2.0); BASO % 0.9 % (0.0-3.0); EOS # 0.4 (0.0-0.7); EOS % 5.3 % (1.5-5.0); GRAN # 1.93 (1.4-6.5); GRAN % 29.5 % (50.0-68.0); HEMOGLOBIN 13.5 g/dL (14.0-18.0); LYMPH # 3.4 (1.2-3.4); LYMPH % 51.3 % (22.0-35.0); MEAN CELL VOLUME 88.9 fl (80.0-105.0); MEAN CORPUSCULAR HEMOGLOBIN 30.5 pg (25.0-35.0); MEAN CORPUSCULAR HGB CONC 34.3 g/dl (31.0-37.0); MEAN PLATELET VOLUME 11.4 fl (7.0-11.0); MONO # 0.9 (0.1-0.6); RBC 4.43 10^6/uL (3.5-6.1); RED CELL DISTRIBUTION WIDTH 13.1 % (11.5-14.5); WHITE BLOOD COUNT 6.6 10^3/ul (4.5-11.0)
[2017-10-07 08:25] LABS: ALB/GLOB RATIO 1.4 (1.1-1.8); ALBUMIN 3.5 g/dL (3.0-4.8); ALT/SGPT 30 U/L (7-56); AST/SGOT 19 U/L (17-59); BLOOD UREA NITROGEN 14 mg/dL (7-21); GFR AFRICAN-AMERICAN > 60; GFR NON-AFRICAN AMERICAN > 60
[2017-10-07] MEDS: Omega-3-Acid Ethyl Esters 1 GM Cap PO SCH (08:27)
[2017-10-07] MEDS: PALIPERIDONE 6 MG PO SCH (09:10)
--- NOTE | 2017-10-07 15:24 | PCM.PYCHDC ---
Mental Status Examination - Mental Status Examination Orientation: Person, Place, Situation, Time Memory: Intact Mood: Neutral Affect: Broad (and mood congruent) Speech: Appropriate (but mildly disorganized seems to be at baseline) Attention: Poor (much improved) Concentration: Poor (much improved) Association: WNL Fund of Knowledge: Poor (baseline) Formal Thought Process: Other (hought process seems to be mildly disorganized, but seems to be at his baseline) Description of patient's judgement and insight: Pt has improved insight into mental and medical illness, pt was compliant with medications and unit rules and regulations, pt was going to groups, was calm, cooperative, socially appropriate, no behavioral incidents, no agitation, no aggression. Psychotic Thoughts and Behaviors: Pt denied v/a/t hallucinations, denied paranoid ideations, pt does not appear to be psychotic, and thought process is goal directed. Suicidal Ideation: No Current Homicidal Ideation?: No Plan: pt adamantly denied thoughts of harming self or others denied intent or plan. Discharge Summary - Discharge Note Reason for Hospitalization: pt was admitted for evaluation of worsening of psychosis, pt was feeling paranoid, was acting bizarre Psychiatric History (includes Medical, Family, Personal Hx): see HPI Laboratory Data: Abnormal Lab Results 10/07/17 10/07/17 07:15 07:15 WBC 6.6 RBC 4.43 Hgb 13.5 L Hct 39.4 L MCV 88.9 MCH 30.5 MCHC 34.3 RDW 13.1 Plt Count 178 MPV 11.4 H Gran % 29.5 L Lymph % (Auto) 51.3 H [place] % (Auto) 13.0 H Eos % (Auto) 5.3 H Baso % (Auto) 0.9 Gran # 1.93 Lymph # (Auto) 3.4 [place] # (Auto) 0.9 H Eos # (Auto) 0.4 Baso # (Auto) 0.06 Sodium 144 Potassium 4.4 Chloride 107 Carbon Dioxide 28 Anion Gap 14 BUN 14 Creatinine 0.7 L Est GFR ( Amer) > 60 Est GFR (Non-Af Amer) > 60 Random Glucose 87 Calcium 9.0 Total Bilirubin 0.4 AST 19 ALT 30 Alkaline Phosphatase 49 Total Protein 6.1 Albumin 3.5 Globulin 2.5 Albumin/Globulin Ratio 1.4 10/07/17 07:15 10/07/17 07:15 Lab Results 10/07/17 07:15: Sodium 144, Potassium 4.4, Chloride 107, Carbon Dioxide 28, Anion Gap 14, BUN 14, Creatinine 0.7 L, Est GFR ( Amer) > 60, Est GFR ( Non-Af Amer) > 60, Random Glucose 87, Calcium 9.0, Total Bilirubin 0.4, AST 19, ALT 30, Alkaline Phosphatase 49, Total Protein 6.1, Albumin 3.5, Globulin 2.5, Albumin/Globulin Ratio 1.4 10/07/17 07:15: WBC 6.6, RBC 4.43, Hgb 13.5 L, Hct 39.4 L, MCV 88.9, MCH 30.5, MCHC 34.3, RDW 13.1, Plt Count 178, MPV 11.4 H, Gran % 29.5 L, Lymph % (Auto) 51.3 H, [place] % (Auto) 13.0 H, Eos % (Auto) 5.3 H, Baso % (Auto) 0.9, Gran # 1.93 , Lymph # (Auto) 3.4, [place] # (Auto) 0.9 H, Eos # (Auto) 0.4, Baso # (Auto) 0.06 10/04/17 07:00: Valproic Acid 77 09/30/17 07:45: Sodium 147, Potassium 4.5, Chloride 110 H, Carbon Dioxide 27, Anion Gap 15, BUN 15, Creatinine 0.8, Est GFR ( Amer) > 60, Est GFR (Non- Af Amer) > 60, Random Glucose 90, Calcium 9.3, Total Bilirubin 0.4, AST 31, ALT 26, Alkaline Phosphatase 49, Total Protein 6.8, Albumin 3.9, Globulin 2.9, Albumin/Globulin Ratio 1.3 09/30/17 07:45: WBC 7.3, RBC 4.87, Hgb 14.9, Hct 43.5, MCV 89.3, MCH 30.6, MCHC 34.3, RDW 13.4, Plt Count 203, MPV 10.9, Gran % 41.6 L, Lymph % (Auto) 42.1 H, [place] % (Auto) 7.9 H, Eos % (Auto) 7.3 H, Baso % (Auto) 1.1, Gran # 3.02, Lymph # (Auto) 3.1, [place] # (Auto) 0.6, Eos # (Auto) 0.5, Baso # (Auto) 0.08 09/29/17 08:00: Valproic Acid 52 09/29/17 08:00: RPR Nonreactive 09/29/17 08:00: TSH 3rd Generation 1.24 09/29/17 08:00: Fasting Glucose 92, Triglycerides 110, Cholesterol 127 L, LDL Cholesterol Direct 74, HDL Cholesterol 32 Vital Signs Temp Pulse Resp BP Pulse Ox 10/07/17 07:00 97.2 F L 82 20 102/70 10/06/17 16:10 101 H 133/73 10/06/17 07:00 97.9 F 72 20 127/78 10/05/17 16:00 84 114/72 10/05/17 06:50 97.7 F 75 20 101/67 10/04/17 16:00 89 114/64 10/04/17 07:03 97.4 F L 67 20 99/55 L 10/03/17 07:32 97.6 F 63 20 99/60 L 10/02/17 15:00 82 109/69 10/02/17 11:29 97.8 F 82 20 121/82 10/02/17 06:44 97.8 F 82 20 121/82 10/01/17 16:00 84 113/77 10/01/17 07:00 97.6 F 69 18 104/69 09/30/17 16:00 69 114/76 09/30/17 07:15 97.9 F 70 18 81/53 L 09/29/17 16:00 63 111/62 09/29/17 06:10 97.5 F L 67 20 116/75 09/29/17 05:52 82 18 118/76 100 09/29/17 04:46 97.8 F 64 18 120/71 97 Consultations:: List each consultation separately and include: 1. Reason for request. 2. Findings. 3. Follow-up Consultations: patient was cleared by medical team and the emergency room Summary of Hospital Course include:: 1. Description of specific treatment plan utilized for patients during their course of treatmen. 2. Summarize the time- course for resolution of acute symptoms and/or regressed behaviors. 3. Describe issues identified and worked on during hospitalization. 4. Describe medication utilized. 5. Describe medical problems identified and treated. 6. Reassessment of suicide risk Summary of Hospital Course: shortly pt is 52yo with reported h/o schizoaffective disorder, bipolar type, multiple psychiatric admissions in the past, at least two suicidal attempts in his , pt lives in longterm, recent psychiatric admission to [facility] on 09/15/17 where meds were adjusted, pt was brought in by staff from the longterm to [facility] for evaluation of aggressive/disorganized/paranoid behavior, pt was decompensating for the past week. pt was not able to be maintained as outpatient because pt was verbally aggressive, threatening staff and residents, pt needs further evaluation and stabilization and meds adjustment. Transfer from [facility] was uneventful. chart from the [facility] reviewed, labs reviewed. initially pt was seen at the tx team meeting room, pt presented with poor personal and dental hygiene, fair ADLs. pt has some cognitive limitation and disorganized thought process due to chronic mental illness, pt had difficulties to stay focused during the evaluation. pt presented to be guarded and paranoid, was keep looking at the back if anyone was chasing him. pt said that a lot of meds were changed during his recent admission at [facility] where he staid for a week under voluntary status. pt said "lamictal, trilafon were discontinued", pt said "I was on maximum dose of thrilafon and it was not helping me and Lamictal was discontinued because doctor thought I was no multiple medications". pt said he was feeling "paranoid and unease", refused to give any details but as per Report from [facility] "patient was more agitated and paranoid than usual , presecutory and paranoid delusions stating he thinks that one of the longterm residents is a gang member and claims this person threatened to steph and kill his family, patient reports thinking that anyone walking by longterm with a phone is taking videos/pictures of him", there are no evidence for any gang activities or taking videos/pictures of pt. as per report pt was [facility] and was compliant with meds and therapy. during the interview pt is obviously paranoid/guarded/ suspicious +symptoms of hypomania evidenced by flight of ideas, irritability, flight of ideas. pt denied v/a/t hallucinations, thought process is tangential and circumstantial. pt denied being abused. pt denied feeling anxious. pt denied any drug use at present but in his "I was sniffing cocaine and smoked marijuana', pt denied drinking alcohol, but reported smoking cigarettes 2packs a day, counseling provided, nicotine patch offered. pt denies thoughts of harming self or others. past psychiatric h/o: multiple admissions, pt said "I don't know, may be more than 20", pt was on multiple psychotrcopid meds, pt said he was on thrilafon ( did not work), pt was on clozaril (pt does not want to take it anymore "I almost on it"), pt was on Lamictal (which was d/c recently, pt does not want to be resumed on it), pt was on Risperdal (but pt does not want to be resumed on it "but my doctor said I was doing very well on it"), pt agreed to take depakote, offered Invega ([facility] pharmacy called), Prolixin ("I am very sleepy on it), pt agreed to take small dose of klonopin if needed. Pt said that he had two suicidal attempts in his both by overdose on pills, most recent was abut two months ago "It was attention seeking "I overdosed on Benadryl" Medical h/o: pt reported to be in good physical health. Family h/o: pt reported his biological mother had mental illness that is why he was adopted. Social h/o: pt lives in longterm. CXR WNL 09/28/17, UDS negative 09/28/17 EKG WNL 09/28/17 meds as per [facility] Report: lipitor 10mg po daily depakote 500mg po am and 1000mg hs prolixin 10mg po bid nizoral 2% bid topirally omega 3 po bid this editorial writer attempted to wean patient off from Prolixin and implement on the intake, initially patient tolerated that regiment well but when Prolixin was discontinued patient started to experience psychotic symptoms, paranoia, had feeling that his roommate is staring at him, this editorial writer resume Prolixin and right now patient is on Wednesday, 12 mg daily Overall patient was stabilized on the following medications: In fico 6 mg twice a day for psychosis Prolixin 5 mg twice a day for psychosis Patient required to be on 2 antipsychotic medications because patient refused to be on Clozaril, this editorial writer attempted to wean patient off from the Prolixin but patient became psychotic. prolixin 5mg po amhs resumed for psychosis ipitor 10mg po daily depakote 500mg po am and 1000mg hs, will be resumed, depakote level was 50 nizoral 2% bid topically omega 3 po bid will be resumed this editorial writer offered patient injectable form of Invega Sustenna but patient refused pt did not want to be on clozaril either. Over the course of this hospitalization pt was attending groups, pt also had medication management, had therapeutic milieu. Overall pt improved significantly, pt's affect became brighter, pt was less depressed, has realistic future oriented plans, pt also does not appear to be grossly psychotic, or anxious, pt was socially appropriate, no behavioral issues , pts insight improved as well and soon pt deemed to be ready for discharge. At the time of the discharge pt denied been depressed, denied thoughts of harming self or others, denied psychotic symptoms, and pt does not appeared to be psychotic, denied been anxious, pt is not in imminent danger to self or others, will be following up at his program, information about follow up appointment, time and address provided to the pt, it is patient responsibility to follow up with outpatient clinic, PMD as well as specialists (see SW note for more detailed information). In case pt will need to obtain results of studies pending at discharge pt was provided with contact information of Psychiatric Inpatient unit [phone] as well as Medical Record Department [phone]. Nicotine patch was offered, pt refused pt was provided with prescriptions for all of medications (please see medication reconciliation form) Pt was educated about safety plan in case of worsening of symptoms or in case of suicidal or homicidal ideation call 911 or go to the nearest ER, also was educated to take meds as prescribed and stay away from drugs, pt verbalized understanding. - Diagnosis (1) Schizoaffective disorder, bipolar type Current Visit: Yes Status: Chronic Priority: High - Final Diagnosis (DSM 5) Condition upon Discharge: IMPROVED Disposition: HOME/ ROUTINE Follow-up Treatment Plan: At the time of the discharge pt denied been depressed, denied thoughts of harming self or others, denied psychotic symptoms, and pt does not appeared to be psychotic, denied been anxious, pt is not in imminent danger to self or others, will be following up at his program, information about follow up appointment, time and address provided to the pt, it is patient responsibility to follow up with outpatient clinic, PMD as well as specialists (see SW note for more detailed information). In case pt will need to obtain results of studies pending at discharge pt was provided with contact information of Psychiatric Inpatient unit [phone] as well as Medical Record Department [phone]. Nicotine patch was offered, pt refused pt was provided with prescriptions for all of medications (please see medication reconciliation form) Pt was educated about safety plan in case of worsening of symptoms or in case of suicidal or homicidal ideation call 911 or go to the nearest ER, also was educated to take meds as prescribed and stay away from drugs, pt verbalized understanding. Prescriptions/Medication Reconciliation: Atorvastatin [Lipitor] 10 mg PO HS #14 tab Benztropine [Cogentin] 0.5 mg PO AMHS #30 tab Divalproex [Depakote ER(ONCE DAILY)] 1,000 mg PO HS #30 ter Divalproex [Depakote ER(ONCE DAILY)] 500 mg PO DAILY #14 ter Docusate [Colace] 100 mg PO TID #21 cap fluPHENAZine [Prolixin] 5 mg PO AMHS #30 tab Ketoconazole 2% Cr [Nizoral] 1 gm TOP BID #1 tube [id number] Ethyl Esters 1 GM [Lovaza] 1 gm PO BID #30 sgl Paliperidone [Invega] 6 mg PO AMHS #30 tab.er.24 Zolpidem [Ambien] 5 mg PO HS PRN #14 tab PRN Reason: Insomnia - Smoking Cessation Smoking Cessation Medication prescribed: No Reason for not providing: pt refused - Antipsychotic Medications Pt discharged on 2 or more routine antipsychotic medications: No
== END 2017-10-07 15:30 | disposition home or self-care (01) | DRG 885 ==
LOC: ED 04:37 → ERH 05:06 → PSYC 06:07
PROVIDERS: ADMIT Psychiatry & Neurology Psychiatry; ATTEND Psychiatry & Neurology Psychiatry
DX: F25.0 Schizoaffective disorder, bipolar type (principal); E78.5 Hyperlipidemia, unspecified; I10 Essential (primary) hypertension; F17.210 Nicotine dependence, cigarettes, uncomplicated; J45.909 Unspecified asthma, uncomplicated; Z53.20 Procedure and treatment not carried out because of patient's decision for unspecified reasons; Z91.5 Personal history of self-harm